=== PATIENT | female | born 1985 | race Caucasian/White ===

== ENCOUNTER 2019-03-09 18:11 | Emergency (ER) | payer SELFPAY ==
--- NOTE | 2019-03-09 21:25 | ULT ---
US Pelvic Transvag W Doppler HISTORY: Low back pain COMPARISON: None TECHNIQUE: Multiple grayscale and color Doppler images were obtained in a transabdominal and transvag inal pelvic ultrasound. Spectral analysis of the Doppler waveforms of the ovaries were performed. FINDINGS: Hypoechoic focus indicative of gestational sac is present at the uterine endometrium. Internal yolk s ac is visualized. Definitive pole is difficult to discern and there is no cardiac activity. On the basis sonographic imaging this corresponds to 5 week 4 day gestation. There is a sma ll volume subchorionic hemorrhage demonstrated. Presumed physiologic left ovarian cyst measures slightly greater than 2 cm. There is mild free pelvic fluid. IMPRESSION: Evidence of gestational sac with internal yolk sac. pole is not confirmed due to sm all size and early gestational sac, corresponding to 5 week 4 day gestation. Therefore, recommend correlation with follow-up beta hCG values as well as short-term imaging follow-up for continued asse ssment. Small volume subchorionic hemorrhage. This may be reassessed at time of short-term imaging follow-up. Transcribed Date/Time: 03/09/2019 9:28 PM
== END 2019-03-09 22:02 | disposition home or self-care (01) ==
LOC: ERS 18:11
DX: M54.5 Low back pain (principal); F17.210 Nicotine dependence, cigarettes, uncomplicated
CPT/HCPCS: 76856

== ENCOUNTER 2019-04-16 08:43 | Emergency (ER) | payer MEDICAID ==
[2019-04-16 09:20] LABS: #Lymphocytes 1.2 thou/uL (1.20-3.40); #Monocytes 0.8 thou/uL (0.11-0.59); #Neutrophils 6.5 thou/uL (1.40-6.50); %Basophils 0.5 % (0.0-1.0); %Eosinophils 0.5 % (0.0-10.0); %Lymphocytes 14.6 % (21.0-51.0); %Monocytes 8.8 % (0.0-10.0); %Neutrophils 75.7 % (42.0-75.0); Hemoglobin 12.9 g/dL (12.0-16.0); Mean Corpuscular HGB CONC 33.3 g/dL (32.0-36.0); Mean Corpuscular Hemoglobin 30.7 pg (27.0-31.0); Mean Platelet Volume 9.1 fL (7.4-10.4); Platelet Count 146 thou/uL (130-400); RBC Distribution Width 11.2 % (11.5-14.5); Red Blood Cell (RBC) Count 4.22 mill/uL (4.20-5.40); White Blood Cell (WBC) Count 8.5 thou/uL (4.8-10.8)
[2019-04-16 10:36] LABS: Bilirubin Negative (Negative); Blood, Urine 3+ (Negative); Clarity Extra Turbid (Clear); Glucose, Urine (Dipstick) Normal (Negative); Leukocyte 500 Leu/uL (Negative); Nitrite Negative (Negative); Protein, Urine (Dipstick) 100 mg/dL (Neg-Trace); RBC/HPF Greater than 50 HPF (0-3); Transitional Epithelial 0-3 HPF (None Seen); WBC/HPF Greater than 50 HPF (0-3)
[2019-04-16 10:39] LABS: Bacteria/HPF 3+ HPF (None Seen)
--- NOTE | 2019-04-16 11:04 | ULT ---
Exam: ultrasound less than 14 weeks: HISTORY: Bleeding in early FINDINGS: Viable intrauterine fetus with a crown-rump length of 3.5 cm equaling 10 weeks 3 days. Subchorionic h emorrhage is noted. Right ovary is not seen. Small less than 1.5 cm left ovarian cyst. No abnormal fluid collection. heart rate 180 bpm IMPRESSION: Early viable intrauterine fetus at 10 weeks 3 days. EDC 11/09/2019 Small subchorionic hemorrhage.
== END 2019-04-16 12:03 | disposition home or self-care (01) ==
LOC: ERS 08:43
DX: O20.8 Other hemorrhage in early pregnancy (principal); O99.331 Smoking (tobacco) complicating pregnancy, first trimester; F17.200 Nicotine dependence, unspecified, uncomplicated; Z3A.10 10 weeks gestation of pregnancy
CPT/HCPCS: 36415; 76856; 81003; 81015; 84702; 85025; 86900; 86901; 87086; 93976

== ENCOUNTER 2019-05-04 07:46 | Observation (INO) | payer OTHER ==
[2019-05-04 08:46] LABS: #Monocytes 0.4 thou/uL (0.11-0.59); #Neutrophils 13.5 thou/uL (1.40-6.50); %Basophils 0.1 % (0.0-1.0); %Eosinophils 0.2 % (0.0-10.0); %Lymphocytes 6.8 % (21.0-51.0); %Monocytes 2.5 % (0.0-10.0); %Neutrophils 90.4 % (42.0-75.0); Hemoglobin 9.9 g/dL (12.0-16.0); Mean Corpuscular HGB CONC 33.1 g/dL (32.0-36.0); Mean Corpuscular Hemoglobin 30.3 pg (27.0-31.0); Mean Corpuscular Volume 91.4 fL (78.0-98.0); Mean Platelet Volume 9.3 fL (7.4-10.4); Platelet Count 216 thou/uL (130-400); Red Blood Cell (RBC) Count 3.26 mill/uL (4.20-5.40); White Blood Cell (WBC) Count 14.9 thou/uL (4.8-10.8)
[2019-05-04 08:58] LABS: ALT (SGPT) Less than 7 U/L (8-55); AST (SGOT) 10 U/L (5-34); Albumin 3.5 g/dL (3.5-5.0); Alkaline Phosphatase 63 U/L (40-110); Anion Gap 13 mmol/L (10-20); BUN (Urea Nitrogen) 10 mg/dL (7.0-18.7); Bilirubin, Total 0.4 mg/dL (0.2-1.2); Calc. Creatinine Clearance 0 mL/min (70-130); Calcium 8.7 mg/dL (7.8-10.44); Carbon Dioxide 22 mmol/L (22-29); Chloride 104 mmol/L (98-107); Estimated GFR-MDRD 86; Glucose 118 mg/dL (70-105); Potassium 4.1 mmol/L (3.5-5.1); Protein, Total 6.5 g/dL (6.0-8.3); Sodium 135 mmol/L (136-145)
--- NOTE | 2019-05-04 09:35 | ULT ---
ULTRASOUND PELVIS: 05/04/2019 HISTORY: A 33-year-old female with ongoing vaginal bleeding after miscarriage. COMPARISON: 04/16/2019 TECHNIQUE: Transabdominal transducer used to evaluate intrapelvic contents. The patient declined transvaginal exam. FINDINGS: Uterus measures 10.5 x 6.5 x 6.5 cm. The previously demonstrated gestational sac with pole is no longer present. Instead, the endome trial cavity is filled to an AP dimension of at least 2 cm (20 mm) with material of intermediate echo genicity, identical to that of adjacent myometrium. This is lined by a thin rim of fluid. This is con sistent with blood clot/hematoma. No hyperechoic components are visualized to indicate definite retai roselia products of conception but retained products of conception are not completely ruled out. No free fluid in the cul-de-sac. The left ovary is within normal limits in size and contains a 1.5 cm cystic central structure. Blood flow demonstrated in the left ovary by Doppler. Right ovary not visualized. IMPRESSION: 1. Status post spontaneous . 2. Large thrombus/blood clot fills and expands the endometrial cavity. POS: [facility]
[2019-05-04 10:25] LABS: Bilirubin Negative (Negative); Blood, Urine 3+ (Negative); Clarity Clear (Clear); Glucose, Urine (Dipstick) Normal (Negative); Leukocyte 75 Leu/uL (Negative); Nitrite Negative (Negative); Protein, Urine (Dipstick) 20 mg/dL (Neg-Trace); RBC/HPF Greater than 50 HPF (0-3); Squamous Epithelial 0-3 HPF (0-3); Urobilinogen Normal mg/dL (Less than 2); WBC/HPF 21-50 HPF (0-3)
[2019-05-04 10:27] LABS: Bacteria/HPF 1+ HPF (None Seen)
[2019-05-04] MEDS ORDERED: PROPOFOL 200 MG/20 ML VIAL ONE (10:27)
[2019-05-04] MEDS ORDERED: Lidocaine 1% PF 5 ML VIAL ONE (10:27)
[2019-05-04] MEDS ORDERED: ePHEDrine/0.9% NaCl/PF SYRINGE 50 mg/10 ml ONE (10:27)
[2019-05-04] MEDS ORDERED: PHENYLEPHRINE-NS 100 MCG/ML 10 ML SYRINGE ONE (10:27)
[2019-05-04] MEDS ORDERED: Misoprostol 200 MCG TAB VAG PRN (13:12)
[2019-05-04] MEDS ORDERED: cefTRIAXone\\ROCEPHIN 1 GM VIAL ONE (15:32)
[2019-05-04 15:51] LABS: #Lymphocytes 2.5 thou/uL (1.20-3.40); #Monocytes 0.8 thou/uL (0.11-0.59); #Neutrophils 6.8 thou/uL (1.40-6.50); %Basophils 0.3 % (0.0-1.0); %Eosinophils 0.5 % (0.0-10.0); %Lymphocytes 24.7 % (21.0-51.0); %Monocytes 7.8 % (0.0-10.0); %Neutrophils 66.8 % (42.0-75.0); Hemoglobin 7.4 g/dL (12.0-16.0); Mean Corpuscular HGB CONC 33.4 g/dL (32.0-36.0); Mean Corpuscular Hemoglobin 30.5 pg (27.0-31.0); Mean Corpuscular Volume 91.2 fL (78.0-98.0); Mean Platelet Volume 9.2 fL (7.4-10.4); Platelet Count 174 thou/uL (130-400); Red Blood Cell (RBC) Count 2.44 mill/uL (4.20-5.40); White Blood Cell (WBC) Count 10.2 thou/uL (4.8-10.8)
[2019-05-04] MEDS ORDERED: Misoprostol 200 MCG TAB VAG SCH (18:30)
--- NOTE | 2019-05-04 18:36 | PRG ---
DATE OF SERVICE: 05/04/2019 TIME: 1814. THERAPY ASSISTANT INFORMAL CONSULT I am with Dr. العراقي now and we are briefly reviewing a patient of his who first presented this morning after an ultrasound was performed at 0809, confirming absence of a gestational sac in utero with a working diagnosis of possible incomplete . Per Dr. العراقي, he has attempted to get the patient to the operating room for a D and C, but due to the OR schedule, and likely anesthesia staffing availability, the OB D and C has not yet been done. The patient received Cytotec earlier this morning, but I have recommended another 800 mcg per vagina x1 as the OR is still pending. As Dr. العراقي will be temporarily unavailable from 1830 until 2200, I have agreed to be available for D and C in the OR once the OR is available. The patient is currently receiving her first unit of packed red blood cells as her hematocrit value has gone from 29.8 at 0823 this morning to last value of 22.2 from 1535 this afternoon. She is also typed and crossed for an additional unit, 2 units total. Her Rh type is positive. Anesthesia is aware, OR team is aware, but we are awaiting availability. As it has been about 10 hours since first presentation, this is just a quick note to update the clinical status, as the primary care team is still awaiting OR availability. As an interim and as an attempt to intervene prior to D and C availability, the 800 mcg Cytotec may help expel any retained products. Job ID: [id number]
[2019-05-04] MEDS ORDERED: Azithromycin 500 MG VIAL ONE (18:53)
[2019-05-04] MEDS ORDERED: Fentanyl 100 MCG/2 ML VIAL ONE (19:11)
[2019-05-04] MEDS ORDERED: Midazolam HCl 2 mg/2 ml Vial ONE (19:11)
--- NOTE | 2019-05-04 19:30 | HP ---
TIME OF EVALUATION: 1854 until 1904. CHIEF COMPLAINT: Vaginal bleeding in the first trimester with an incomplete . HISTORY OF PRESENT ILLNESS: This is a patient of Dr. العراقي who has asked me to intervene for D and C this evening as he is temporarily unavailable. The patient first presented at 0800 this morning and was awaiting OR availability and is now ready for the OR. She is also currently receiving her second unit of packed red blood cells. In brief, this patient has a full hand written H and P in the physical chart, so this is simply ancillary for record. I have seen and evaluated the patient. INTERVENTIONS: Pending, OB D and C. Zithromax 500 mg IV x1. I have called ultrasound to see if they are available for ultrasound guidance, but I could not find someone to answer the phone at the department at this time. ASSESSMENT: 1. This is a first trimester incomplete status post Cytotec who is now ready for the OB D and C. 2. Status post 2 units RBCs with a second unit in process now. PLAN: 1. D and C now. 2. Zithromax as preop antibiotic. 3. Rh positive. 4. The patient was safe for overnight observation per Dr. العراقي and he will evaluate her later on this evening to tomorrow morning for possible discharge. Job ID: [id number]
--- NOTE | 2019-05-04 20:43 | OP ---
DATE OF PROCEDURE: 05/04/2019 TIME OF INTERVENTION: Roughly 1930. LOCATION: OR bed D. PREOPERATIVE DIAGNOSIS: This is a patient with suspected 12- to 13-week miscarriage with retained products of conception and active bleeding, who has required 2 units packed red blood cells. POSTOPERATIVE DIAGNOSES: 1. This is a patient with suspected 12- to 13-week miscarriage with retained products of conception and active bleeding, who has required 2 units packed red blood cells. 2. Status post suction D and C under ultrasound guidance (by Department of technician plant and maintenance...informal scan). PROCEDURE PERFORMED: OB suction D and C (#8 curved and #10 curved plastic curette) done under ultrasound guidance (transabdominal). GOLF STARTER AND RANGER: Olga Hahn (M #3). ANESTHESIA: General. ANTIBIOTICS: Zithromax 500 mg IV. OTHER FLUIDS GIVEN: Includes LR at about 500 mL and a second unit of blood was completed which was begun in the emergency department. ESTIMATED BLOOD LOSS: About 500 mL. FINDINGS: 1. There is an echogenic material in the uterine cavity seen on ultrasound at the initiation of the case. 2. The entire procedure was done under transabdominal ultrasound and no evidence of uterine perforation occurred. 3. At the completion of the procedure, there was an endometrial stripe noted that did not suspect any further retained products. 4. No cervical lesions noted. MEDICATIONS GIVEN: At end of procedure includes Cytotec (four tablets) placed in the vagina and the posterior fornix. COMPLICATIONS: None. COUNTS: Correct. PATHOLOGY: Tissue via suction catheter and tissue that was pulled from the cervix that was adherent to the suction catheter also sent under formalin (suspected placental fragments). DESCRIPTION OF PROCEDURE: After proper informed consent was explained to the patient, she was placed under general endotracheal anesthesia and her legs were positioned in Morgan stirrups and all pressure points were adequately padded. Deep hyperflexion and external rotation were avoided in the positioning process. The patient's vulva and vagina were prepped and draped in the usual sterile fashion. An in-and-out catheterization of the bladder revealed about 100 mL of clear urine. A Graves bivalve speculum was placed into the vagina for visualization of the cervix and a single-tooth tenaculum was placed on the anterior lip for uterine retraction. Dilation was not required as the cervix was patent. The uterine sound was about 9-10 cm. We began with an 8 mm curved plastic curette using a vacuum pressure of 30 to 40 mmHg. After about 2 minutes of suction noting that there was a significant amount of retained products, we switched to a #10 curved plastic curette under the same mmHg. Continuous suction was performed and sharp curettage was not performed. At the completion of the procedure, there was an endometrial stripe noted on ultrasound. All instruments were removed from the patient's vault and vagina and all counts were correct. MEDS: Four tablets of 200 mcg of Cytotec each were placed in the posterior fornix for uterine contraction. DISPOSITION: The patient seemed to tolerate the procedure well based on her vital signs and will be watched overnight per Dr. العراقي who is her attending/admitting physician. Job ID: [id number] MTDD
[2019-05-04] MEDS: Sodium Chloride 0.9% 1,000 ML IV SCH (22:25)
--- NOTE | 2019-05-05 00:50 | HP ---
HISTORY OF PRESENT ILLNESS: This is a 33-year-old white female, G5, P2, A3, who spontaneously aborted her most recent 2 days prior to admission. She had an episode of heavy bleeding at home, and an ultrasound which had previously shown intrauterine gestation, on followup ultrasound on the day prior to admission showed only clot and debris. She was given misoprostol to prevent bleeding; however, on the morning of admission, when she took her first dose, she had significant pain and bleeding and fainted in the bathroom at home. She was brought to the emergency room by her mother. PAST MEDICAL HISTORY: No chronic disease. MEDICATIONS: Takes no medication on a regular basis. PAST SURGICAL HISTORY: No prior surgeries. SOCIAL HISTORY: Denies tobacco, alcohol, or drugs. PHYSICAL EXAMINATION: VITAL SIGNS: Pulse is in the 80s. Blood pressure is in the 70s to 80s over 50s. HEENT: She has a small contusion above the left eyebrow from her fall. ABDOMEN: Soft with no guarding or rebound, but tenderness in the suprapubic region. : Sterile speculum exam by the ER physician showed an open cervical os. EXTREMITIES: Warm and dry. LABORATORY DATA: Initial CBC showed an H and H of 9.9/29.8. Followup CBC 9 hours later, showed a hemoglobin of 7.4 with hematocrit of 22.2. Platelets went from 216 to 174. Electrolytes are normal. Urine is unremarkable. Ultrasound shows a clot and debris in the endometrial canal with no pole consistent with incomplete AB; however, no products of conception are definitively identified. ASSESSMENT AND PLAN: Incomplete with hemorrhage. We will admit to [facility]. Prepare for D and C, transfusion support as needed. Job ID: [id number]
--- NOTE | 2019-05-05 01:27 | PRG ---
DATE OF SERVICE: 05/04/2019 SUBJECTIVE: The patient complains of cramps and being hungry. OBJECTIVE: VITAL SIGNS: Her pulse is 90. Her blood pressure is 90/55. LABORATORY DATA: Hematocrit 23, down from 28 this morning. PLAN: I again spoke with Anesthesia, Dr. Naidu and informed him of the patient's persistent bleeding, drop in hematocrit, and hypotension over the last 6 hours since I was notified of the admission and he estimates 1-1/2 hours before surgery can be performed due to ongoing surgery cases. We will proceed as planned with transfusion of 2 units of packed red cells and we will perform D and C as soon as anesthesia is available for the case. Job ID: [id number] MTDD
[2019-05-05] MEDS: Sodium Chloride 0.9% 1,000 ML IV SCH (02:16)
[2019-05-05 05:46] LABS: #Eosinphils 0.2 thou/uL (0.0-0.7); #Lymphocytes 3.4 thou/uL (1.20-3.40); #Monocytes 0.8 thou/uL (0.11-0.59); #Neutrophils 5.9 thou/uL (1.40-6.50); %Basophils 0.1 % (0.0-1.0); %Eosinophils 1.6 % (0.0-10.0); %Monocytes 8.1 % (0.0-10.0); %Neutrophils 57.2 % (42.0-75.0); Mean Corpuscular HGB CONC 34.7 g/dL (32.0-36.0); Mean Corpuscular Hemoglobin 31.4 pg (27.0-31.0); Mean Corpuscular Volume 90.6 fL (78.0-98.0); Mean Platelet Volume 9.5 fL (7.4-10.4); Platelet Count 143 thou/uL (130-400); RBC Distribution Width 12.2 % (11.5-14.5); Red Blood Cell (RBC) Count 2.54 mill/uL (4.20-5.40); White Blood Cell (WBC) Count 10.4 thou/uL (4.8-10.8)
[2019-05-05 07:44] VITALS: BP 99/53; TEMP 97.5
[2019-05-05] MEDS ORDERED: FLU VACC QS2019-20(6MOS UP)/PF 60 MCG/0.5 ML SYRINGE IM ONE (09:00)
--- NOTE | 2019-05-06 04:28 | DIS ---
DATE OF ADMISSION: 05/04/2019 DATE OF DISCHARGE: 05/05/2019 PRINCIPAL DIAGNOSIS: Incomplete with hemorrhage. PROCEDURE: Suction dilation and curettage. BRIEF HISTORY: A 33-year-old white female G5, P2 at approximately 12 weeks estimated gestational age, had a spontaneous AB 2 days prior to admission at home. One day prior to admission, she had an ultrasound that showed only blood debris and a possible hematoma in the endometrial cavity. On the day of admission, she took her prescribed misoprostol and had episode of heavy bleeding and pain and presented to the ER. PHYSICAL EXAMINATION: VITAL SIGNS: On admission showed blood pressure in the 80s to 90s over 50s. His pulse was in the 90s. ABDOMEN: Soft with mild tenderness in the suprapubic region and open cervix on sterile speculum exam. HOSPITAL COURSE: Ms. Restrepo was admitted from the ER to preop after an extended ER stay due to lack of OR time and/or anesthesia availability. In the interim, between admission and her D and C, she was transfused 2 units of packed red cells for continued bleeding and drop in her hematocrit from 30 to 22. She was eventually taken for suction D and C, which she underwent without complication. She was observed overnight. Overnight, postoperatively, she did well. Bleeding was scant. She had no pain on the morning of 05/05. She was discharged in good condition on 05/05/2019. DISCHARGE INSTRUCTIONS: ACTIVITIES: As tolerated. FOLLOWUP: In 1 to 2 weeks. MEDICATIONS: Iron daily. She has ibuprofen and Lortab previously given. Job ID: [id number]
== END 2019-05-05 07:00 | disposition home or self-care (01) ==
LOC: ERS 07:46 → SDC/OP 20:14 → 3SE 21:48
PROVIDERS: ADMIT Obstetrics & Gynecology; ATTEND Obstetrics & Gynecology
PROC: 10D17Z9 Manual Extraction of Products of Conception, Retained, Via Natural or Artificial Opening (ICD-10-PCS; principal; 2019-05-05)
DX: O03.1 Delayed or excessive hemorrhage following incomplete spontaneous abortion (principal); Z3A.12 12 weeks gestation of pregnancy
CPT/HCPCS: 36415; 36430; 76856; 80053; 81003; 81015; 85025; 86850; 86900; 86901; 88305; 93005; 93976; 96361; 96365; G0378; J0456; J0696; J2001; J2250; J2704; J3010; P9016

== ENCOUNTER 2019-10-27 14:58 | Emergency (ER) | payer OTHER ==
[2019-10-27] MEDS ORDERED: Ondansetron PF 4 MG/2 ML Vial ONE (15:12)
[2019-10-27 15:36] LABS: #Basophils 0.1 thou/uL (0.0-0.2); #Eosinphils 0.3 thou/uL (0.0-0.7); #Lymphocytes 2.4 thou/uL (1.20-3.40); #Monocytes 0.7 thou/uL (0.11-0.59); #Neutrophils 7.7 thou/uL (1.40-6.50); %Basophils 0.7 % (0.0-1.0); %Eosinophils 2.5 % (0.0-10.0); %Lymphocytes 21.3 % (21.0-51.0); %Monocytes 6.4 % (0.0-10.0); %Neutrophils 69.1 % (42.0-75.0); Hemoglobin 12.5 g/dL (12.0-16.0); Mean Corpuscular HGB CONC 31.9 g/dL (32.0-36.0); Mean Corpuscular Hemoglobin 27.3 pg (27.0-31.0); Mean Corpuscular Volume 85.7 fL (78.0-98.0); Mean Platelet Volume 10.2 fL (7.4-10.4); Platelet Count 148 thou/uL (130-400); RBC Distribution Width 15.4 % (11.5-14.5); Red Blood Cell (RBC) Count 4.57 mill/uL (4.20-5.40); White Blood Cell (WBC) Count 11.1 thou/uL (4.8-10.8)
[2019-10-27 15:53] LABS: ALT (SGPT) Less than 7 U/L (8-55); AST (SGOT) 10 U/L (5-34); Albumin 3.7 g/dL (3.5-5.0); Alkaline Phosphatase 60 U/L (40-110); Anion Gap 12 mmol/L (10-20); BUN (Urea Nitrogen) 8 mg/dL (7.0-18.7); Bilirubin, Total 0.4 mg/dL (0.2-1.2); Calc. Creatinine Clearance 0 mL/min (70-130); Calcium 8.6 mg/dL (7.8-10.44); Carbon Dioxide 21 mmol/L (22-29); Chloride 104 mmol/L (98-107); Estimated GFR-MDRD Greater than 90; Globulin 3.1 g/dL (2.4-3.5); Glucose 86 mg/dL (70-105); Lipase 30 U/L (8-78); Potassium 3.9 mmol/L (3.5-5.1); Protein, Total 6.8 g/dL (6.0-8.3); Sodium 133 mmol/L (136-145)
[2019-10-27 16:04] LABS: Bilirubin Negative (Negative); Blood, Urine Negative (Negative); Clarity Clear (Clear); Glucose, Urine (Dipstick) Normal (Negative); Leukocyte Negative Leu/uL (Negative); Nitrite Negative (Negative); Protein, Urine (Dipstick) Negative (Neg-Trace); Urobilinogen Normal mg/dL (Less than 2)
--- NOTE | 2019-10-27 16:33 | ULT ---
Obstetric sonogram limited twin HISTORY: Nausea vomiting. Pelvic pain. . FINDINGS: Diamniotic, dichorionic gestation within the uterus. 2 poles and yolk sacs. There is an anterior and a posterior placenta. Small subchorionic fluid collection, 1.6 cm, along the anterior margin. pole measurements correlate with 10 weeks 5 days and 10 weeks 6 days gestational age. Heart motion was calculated at 175 and 168 bpm. IMPRESSION : Twin intrauterine gestation. Estimated gestational ages 10 weeks 5 days and 10 weeks 6 days. No evide nce of complication. Incidental note of very small subchorionic hemorrhage.
== END 2019-10-27 17:20 | disposition short-term general hospital (02) ==
LOC: ERS 14:58
DX: O21.9 Vomiting of pregnancy, unspecified (principal); O30.041 Twin pregnancy, dichorionic/diamniotic, first trimester; O99.331 Smoking (tobacco) complicating pregnancy, first trimester; F17.210 Nicotine dependence, cigarettes, uncomplicated; Z3A.10 10 weeks gestation of pregnancy
CPT/HCPCS: 36415; 76815; 80053; 81003; 83690; 84702; 85025; 96361; 96374; J2405

== ENCOUNTER 2020-03-13 14:04 | Day surgery (SDC) | payer OTHER ==
[2020-03-13 14:42] VITALS: BMI 34.1
[2020-03-13] MEDS ORDERED: hydrALAZINE 20 MG/ML VIAL SLOW IVP PRN (15:39)
[2020-03-13 16:31] LABS: Bacteria/HPF None Seen HPF (None Seen); Bilirubin Negative (Negative); Blood, Urine Negative (Negative); Clarity Clear (Clear); Glucose, Urine (Dipstick) Normal (Negative); Ketone, Urine Negative (Negative); Leukocyte Negative Leu/uL (Negative); Nitrite Negative (Negative); Protein, Urine (Dipstick) Negative (Neg-Trace); RBC/HPF None Seen HPF (0-3); Specific Gravity, Urine 1.015 (1.002-1.036); Squamous Epithelial 0-3 HPF (0-3); WBC/HPF 0-3 HPF (0-3); pH, Urine 5.5 (5.0-9.0)
--- NOTE | 2020-03-13 17:01 | ULT ---
US Biophysical Profile: 03/13/2020 3:40 PM CLINICAL HISTORY: Twin intrauterine . COMPARISON: None. FINDINGS: Fetus A: heart rate: 119 bpm. PIERRE: 5.1 cm Biophysical profile: 8 of 8 Fetus B: heart rate: 132 bpm. PIERRE: 3.4 cm Biophysical profile: 8 of 8 IMPRESSION: 1. Normal biophysical profile 2. Oligohydramnios
[2020-03-13] MEDS ORDERED: FLU VACC QS2020-21(6MOS UP)/PF 60 MCG/0.5 ML SYRINGE IM ONE (19:15)
--- NOTE | 2020-03-14 06:38 | PRG ---
DATE OF SERVICE: 03/13/2020 CHIEF COMPLAINT: Abdominal pain. HISTORY OF PRESENT ILLNESS: The patient is a 34-year-old G6, P4 female with an intrauterine at 30 weeks and 3 days of a di/di twin gestation, presenting to Labor and Delivery with abdominal menstrual cramps that she said persisted for about 30 to 45 minutes this morning. She also had this similar symptom on Friday that lasted about 30 minutes. The patient reports at the time of our evaluation that this pain has resolved and has not had it since. She denies regular intermittent pains or contractions. She denies sharp stabbing pains associated with movement. She reports having had intercourse yesterday. She also reports a discharge that she describes as thin and mucousy and clear. The patient denies fever, cough, headache, chest pain, shortness of breath, nausea, vomiting, diarrhea, or constipation. She does report hip pain with this . She denies any new rashes. She denies vaginal bleeding or watery discharge. She denies urinary urgency or frequency. PAST MEDICAL HISTORY: Anemia. PAST SURGICAL HISTORY: She has had eye surgery. SOCIAL HISTORY: Reports tobacco use, about 3 to 5 cigarettes a day. ALLERGIES: NO KNOWN DRUG ALLERGIES. MEDICATIONS: 1. vitamins. 2. Iron. OB LABS: Unavailable at the time of dictation. REVIEW OF SYSTEMS: Per HPI. PHYSICAL EXAMINATION: VITAL SIGNS: Blood pressure is 103/63, heart rate of 81, saturating 98% on room air, temperature 98.2, and respiratory rate of 20. GENERAL: She appears to be in no acute distress. She is alert, oriented, cooperative, and pleasant to interact with. HEENT: Head is normocephalic and atraumatic. LUNGS: Clear to auscultation bilaterally. HEART: Has a regular rate and rhythm. ABDOMEN: Gravid, soft, nontender. EXTREMITIES: Nontender, nonedematous. PELVIS: Vulva is without masses, lesions, or erythema. Vagina is moist. She has a moderate amount of discharge. She has thin cervical mucus present. A VP3 was collected. On digital exam, cervix is closed and thick and feels unlabored. heart tracing was difficult with a twin gestation. We did get tracing of one of the babies with a baseline of 140s with moderate long-term variability, positive 15 x 15 accelerations. Baby B only in short spurts were we able to see. BPP shows 8 for both baby A and baby B. Urinalysis and VP3 have both been collected, and we are awaiting final results. ASSESSMENT AND PLAN: The patient is a 34-year-old female, G6, P4 with an intrauterine of a di/di twin gestation at 30 weeks and 3 days, coming in complaining of an isolated extended abdominal cramp that has since spontaneously resolved. The patient has no evidence of labor or rupture of membranes. The patient has a VP3 and urinalysis pending. The patient is being discharged to home. She has an appointment tomorrow with [facility]. The patient will be calling in a couple of hours for her VP3 and urinalysis results. Job ID: [id number]
== END 2020-03-13 16:38 | disposition home or self-care (01) ==
LOC: L&D/OP 14:04
PROVIDERS: ATTEND Family Medicine
DX: O99.891 Other specified diseases and conditions complicating pregnancy (principal); R10.9 Unspecified abdominal pain; O30.043 Twin pregnancy, dichorionic/diamniotic, third trimester; O41.03X0 Oligohydramnios, third trimester, not applicable or unspecified; O99.013 Anemia complicating pregnancy, third trimester; D64.9 Anemia, unspecified; O99.333 Smoking (tobacco) complicating pregnancy, third trimester; F17.210 Nicotine dependence, cigarettes, uncomplicated; Z3A.30 30 weeks gestation of pregnancy
CPT/HCPCS: 76819; 81001; 87480; 87510; 87660

== ENCOUNTER 2020-03-15 15:58 | Inpatient (IN) | payer OTHER ==
[~2020-03-15 15:58] MED LIST: EPHEDRINE 25 MG/5 ML SYRINGE ONE; Glycopyrrolate 0.2 MG/ML 5 ML SYRINGE ONE; Lidocaine 1% PF 5 ML VIAL ONE; Oxytocin 10 UNITS/ML VIAL ONE; PROPOFOL 200 MG/20 ML VIAL ONE; Rocuronium Bromide 10 MG/ML (10ML VIAL) ONE; Succinylcholine Chloride 20 MG/ML 10 ml SYRINGE FS ONE
[2020-03-15] MEDS ORDERED: Betamet Acet/Betamet Na Ph 30 MG/5 ML VIAL ONE (16:29)
[2020-03-15 16:46] LABS: #Basophils 0.1 thou/uL (0.0-0.2); #Eosinphils 0.2 thou/uL (0.0-0.7); #Monocytes 1.1 thou/uL (0.11-0.59); #Neutrophils 11.2 thou/uL (1.40-6.50); %Basophils 0.4 % (0.0-1.0); %Eosinophils 1.5 % (0.0-10.0); %Lymphocytes 13.8 % (21.0-51.0); %Monocytes 7.6 % (0.0-10.0); %Neutrophils 76.8 % (42.0-75.0); Hemoglobin 8.8 g/dL (12.0-16.0); Mean Corpuscular HGB CONC 31.9 g/dL (32.0-36.0); Mean Corpuscular Hemoglobin 27.2 pg (27.0-31.0); Mean Corpuscular Volume 85.5 fL (78.0-98.0); Mean Platelet Volume 8.9 fL (7.4-10.4); Platelet Count 171 thou/uL (130-400); RBC Distribution Width 18.5 % (11.5-14.5); Red Blood Cell (RBC) Count 3.22 mill/uL (4.20-5.40); White Blood Cell (WBC) Count 14.6 thou/uL (4.8-10.8)
[2020-03-15 16:53] LABS: PTT 26.4 sec (22.9-36.1); Prothrombin Time 13.7 sec (12.0-14.7)
[2020-03-15] MEDS ORDERED: Ondansetron PF 4 MG/2 ML Vial IVP PRN ×4 (16:56→22:10)
[2020-03-15] MEDS ORDERED: hydrALAZINE 20 MG/ML VIAL SLOW IVP PRN ×2 (16:56→22:10)
[2020-03-15] MEDS ORDERED: Lactated Ringer's 1,000 ML IV SCH (17:00)
[2020-03-15 18:01] LABS: HBSAg Index 0.18 S/CO (0-0.99); Hep B Surf Ag Non-Reactive S/CO (NonReactive)
[2020-03-15 18:03] LABS: Syphilis Antibody Nonreactive (Nonreactive); Syphilis Antibody Index 0.04 S/CO (<1.00 Non-Reactive)
[2020-03-15] MEDS ORDERED: Bicitra 30 ML UDCUP ONE (18:28)
[2020-03-15] MEDS ORDERED: Bicitra 30 ML UDCUP PO SCH (18:30)
[2020-03-15] MEDS ORDERED: Azithromycin 500 MG in Sodium Chloride 0.9% 250 ML 250 ML IVPB SCH (18:30)
[2020-03-15] MEDS ORDERED: CEFAZOLIN 2 GM in Premix Bag 1 BAG IVPB SCH ×2 (18:30→23:59)
[2020-03-15] MEDS ORDERED: Azithromycin 500 MG VIAL ONE (18:32)
[2020-03-15] MEDS ORDERED: Fentanyl 250 MCG/5 ML VIAL ONE (18:53)
[2020-03-15] MEDS ORDERED: Dexamethasone 4 mg/ml Vial ONE (19:00)
[2020-03-15] MEDS ORDERED: Ketorolac Tromethamine 30 MG/ML VIAL ONE (19:00)
[2020-03-15] MEDS ORDERED: Ondansetron PF 4 MG/2 ML Vial ONE (19:00)
[2020-03-15 19:07] LABS: Actual Bicarbonate (HCO3v) 21 mEq/L (22-28); Base Excess -1.7 mEq/L (-2.0 to +3.0); pH (Cord, venous) 7.46 (7.32-7.43)
[2020-03-15 19:10] LABS: Actual Bicarbonate (HCO3v) 22 mEq/L (22-28); pH (Cord, venous) 7.46 (7.32-7.43)
[2020-03-15 19:12] LABS: Actual Bicarbonate (HCO3a) 22.6 mEq/L (22-28); Base Excess (BEa) -2.3 mEq/L (-2.0 to +3.0)
[2020-03-15] MEDS ORDERED: Oxytocin 10 UNITS/ML VIAL ONE (19:25)
[2020-03-15] MEDS ORDERED: diphenhydrAMINE 50 MG/ML VIAL IVP PRN ×2 (19:40→19:41)
[2020-03-15] MEDS ORDERED: Meperidine HCl/PF 25 MG/ML VIAL SLOW IVP PRN (19:40)
[2020-03-15] MEDS ORDERED: Promethazine HCl 25 MG/ML VIAL IM PRN ×3 (19:40→22:10)
[2020-03-15] MEDS ORDERED: Naloxone HCl 0.4 mg/ml Vial IV PRN ×2 (19:40→19:41)
[2020-03-15] MEDS ORDERED: Ondansetron HCl/PF 4 MG/2 ML Vial IVP PRN (19:40)
[2020-03-15] MEDS ORDERED: diphenhydrAMINE 25 MG CAP PO PRN ×3 (19:40→22:10)
[2020-03-15] MEDS ORDERED: HYDROmorphone 2 MG/ML VIAL SLOW IVP PRN (19:40)
[2020-03-15] MEDS ORDERED: L&D-Morphine 4 MG/ML VIAL SLOW IVP PRN (19:40)
[2020-03-15] MEDS ORDERED: Zolpidem Tartrate 5 MG TAB PO PRN ×2 (19:40→19:41)
[2020-03-15] MEDS ORDERED: diphenhydrAMINE 50 MG/ML VIAL IM PRN ×2 (19:40→19:41)
[2020-03-15] MEDS ORDERED: fentaNYL Citrate/PF 2,000 MCG in Sodium Chloride 0.9% 60 ML IV PRN (19:41)
[2020-03-15 19:42] LABS: SARS-CoV-2 NAA Rapid Test Not Detected (NotDetected)
--- NOTE | 2020-03-15 19:42 | ULT ---
OB ULTRASOUND: 03/15/20 HISTORY: Twin with vaginal bleeding. Evaluate for placental abruption. TECHNIQUE: Multiplanar thompson scale and color Doppler images were obtained in a transabdominal ultrasound. FINDINGS: There is a twin intrauterine . For the purposes of this examination, twin A is in breech pre sentation and its placenta cannot be seen and twin B is in breech presentation with an anterior place nta. There is cervical funneling/widening. PIERRE is 9.6 cm, which is normal. FETUS A: Estimated weight is 1430 grams. Average age of this fetus is 30 weeks, 0 days. A heart ra te is 145 beats per minute. The following measurements were taken and dates based off these measureme nts are as follows: BPD 7.35 cm 30 weeks, 5 days HC 27.42 cm 30 weeks, 0 days AC 25.16 cm 29 weeks, 3 days FL 5.67 cm 29 weeks, 5 days FETUS B: Estimated weight is 1520 grams. Average age of this fetus based off this examination is 30 week s, 2 days. B heart rate is 149 beats per minute. The following measurements were taken and date s based off these measurements are as follows: BPD 7.45 cm 29 weeks, 6 days HC 28.31 cm 31 weeks, 0 days AC 25.80 cm 30 weeks, 0 days FL 5.79 cm 30 weeks, 2 days IMPRESSION: 1. Twin intrauterine with viable twins. 2. There is cervical funneling. POS: [facility]
[2020-03-15] MEDS ORDERED: Communication Order-Pharmacy FS SCH ×2 (19:45)
[2020-03-15] MEDS ORDERED: Ketorolac Tromethamine 30 MG/ML VIAL IVP SCH (19:45)
[2020-03-15] MEDS: Lactated Ringer's 1,000 ML IV SCH ×2 (20:28→21:20)
[2020-03-15 20:36] VITALS: BMI 34.1
[2020-03-15] MEDS: metroNIDAZOLE 500 MG in Premix Bag 1 BAG IVPB SCH (21:11)
--- NOTE | 2020-03-15 22:05 | OP ---
DATE OF PROCEDURE: 03/15/2020 PRIMARY OB: Dr. Swapnil العراقي. This serves as documentation that I functioned as 1st assist to Dr. العراقي on an emergent primary for twins secondary to abruption. For complete details, please refer to Dr. العراقي's operative note. Job ID: [id number]
[2020-03-15] MEDS ORDERED: Bisacodyl 10 MG SUPP PR PRN (22:10)
[2020-03-15] MEDS ORDERED: Meperidine HCl/PF 25 MG/ML VIAL IM PRN (22:10)
[2020-03-15] MEDS ORDERED: Lanolin Ointment 7 GM TUBE TOP PRN (22:10)
[2020-03-15] MEDS ORDERED: HYDROcodone/Acetaminophen 5/325 mg Tablet PO PRN (22:10)
[2020-03-15] MEDS ORDERED: Simethicone Chewable 80 MG TAB PO PRN (22:10)
[2020-03-15] MEDS ORDERED: Docusate Calcium (SURFAK) 240 MG CAP PO SCH (22:45)
[2020-03-15] MEDS ORDERED: NS / Oxytocin 40 units/1000ml 1,000 ML IV SCH (22:45)
[2020-03-16] MEDS: Ketorolac Tromethamine 30 MG/ML VIAL IVP SCH ×4 (02:53→17:50)
[2020-03-16] MEDS: CEFAZOLIN 2 GM in Premix Bag 1 BAG IVPB SCH ×3 (02:55→17:49)
[2020-03-16] MEDS: metroNIDAZOLE 500 MG in Premix Bag 1 BAG IVPB SCH ×4 (05:37→21:48)
[2020-03-16 06:22] LABS: Hemoglobin 8.1 g/dL (12.0-16.0); Mean Corpuscular HGB CONC 32.4 g/dL (32.0-36.0); Mean Corpuscular Hemoglobin 28.2 pg (27.0-31.0); Mean Corpuscular Volume 87.1 fL (78.0-98.0); Platelet Count 155 thou/uL (130-400); RBC Distribution Width 17.8 % (11.5-14.5); Red Blood Cell (RBC) Count 2.88 mill/uL (4.20-5.40)
[2020-03-16] MEDS ORDERED: Adacel (T-DAP) 0.5 ML SYRINGE IM ONE (09:00)
[2020-03-16] MEDS ORDERED: FLU VACC QS2020-21(6MOS UP)/PF 60 MCG/0.5 ML SYRINGE IM ONE (09:00)
[2020-03-16] MEDS ORDERED: fentaNYL Citrate/PF 2,000 MCG in Sodium Chloride 0.9% 60 ML IV PRN (11:42)
[2020-03-16] MEDS: Lactated Ringer's 1,000 ML IV SCH ×7 (12:37→17:00)
[2020-03-16] MEDS: Docusate Calcium (SURFAK) 240 MG CAP PO SCH ×2 (12:40→21:46)
[2020-03-16] MEDS: Ferrous Sulfate 325 MG TAB PO SCH ×2 (12:40→17:50)
[2020-03-16] MEDS: Prenatal Vitamin 1 TAB PO SCH (12:40)
[2020-03-16] MEDS: Acetaminophen 500 MG TAB PO SCH ×2 (15:00→17:50)
[2020-03-16] MEDS ORDERED: Ibuprofen 800 MG TAB PO SCH ×2 (20:15→22:30)
[2020-03-16] MEDS: Ibuprofen 800 MG TAB PO SCH (21:46)
[2020-03-17] MEDS: Acetaminophen 500 MG TAB PO SCH ×4 (02:06→17:24)
[2020-03-17] MEDS: CEFAZOLIN 2 GM in Premix Bag 1 BAG IVPB SCH ×3 (02:15→17:26)
[2020-03-17] MEDS: Ibuprofen 800 MG TAB PO SCH ×3 (05:04→20:56)
[2020-03-17] MEDS: metroNIDAZOLE 500 MG in Premix Bag 1 BAG IVPB SCH ×3 (05:04→20:55)
[2020-03-17] MEDS: Prenatal Vitamin 1 TAB PO SCH ×2 (08:29→08:30)
[2020-03-17] MEDS: Ferrous Sulfate 325 MG TAB PO SCH ×2 (08:30→17:25)
[2020-03-17] MEDS: Docusate Calcium (SURFAK) 240 MG CAP PO SCH ×2 (08:31→20:56)
[2020-03-17] MEDS: HYDROcodone/Acetaminophen 5/325 mg Tablet PO PRN (21:38)
--- NOTE | 2020-03-17 23:02 | OP ---
DATE OF PROCEDURE: 03/15/2020 PREOPERATIVE DIAGNOSES: 1. Thirty weeks six days intrauterine . 2. Dichorionic diamniotic twins. 3. Suspected placental abruption. POSTOPERATIVE DIAGNOSES: 1. Thirty weeks six days intrauterine . 2. Dichorionic diamniotic twins. 3. Suspected placental abruption. PROCEDURE PERFORMED: Primary low cervical transverse section. CO-SURGEON: Benigno Clarke MD ANESTHESIA: General endotracheal. DESCRIPTION OF EVENTS: After informed consent was obtained from the patient, she was taken to the OR where she was prepped and draped in the usual sterile fashion. General anesthesia was administered. A Pfannenstiel incision was created with a #10 scalpel blade and carried down to the fascia. The fascia was incised transversely with the scalpel as well. Blunt digital dissection was used to extend the fascial incisions to the corners and to separate the rectus muscles and peritoneum. Bladder blade was inserted. The uterus was entered in a low-transverse fashion with a clean #10 scalpel blade. Blood-tinged amniotic fluid was encountered. Twin A was encountered in gemma breech presentation and was delivered atraumatically. Membranes were ruptured for twin B and twin B was delivered also in gemma breech presentation atraumatically. Cord segments from each cord were taken for cord gases. Cord blood was obtained. A true knot was noted in twin A's umbilical cord. The placentas were manually extracted and sent to pathology for review after cord blood was obtained. The uterus was exteriorized and freed of clots and debris. The uterus was repaired with a running locking suture of one Monocryl in a single full-thickness layer. A running second layer of horizontal mattress sutures along the incision line were placed for hemostasis, which was achieved. The abdomen was copiously irrigated. Seprafilm was applied to the repaired uterine incision and the anterior uterine fundus. The uterus was then returned to the abdomen. The peritoneum was repaired with a running suture of 3-0 Vicryl. The fascia was repaired with a running suture of zero PDS. Three interrupted sutures of 3-0 Vicryl were placed in the subdermal layer to reapproximate the skin, which was closed with skin savanah. Sponge and instrument counts were correct x4. She tolerated the procedure well and suffered no acute complications. She was taken Recovery in stable condition, the infants to the NICU in stable condition. FINDINGS: Twin A, female, Apgars five and eight at 1 and 5 minutes respectively. Twin B, female, Apgars five, seven, and eight at 1, 5 and 10 minutes respectively. COMPLICATIONS: None. EBL: 1200 mL. Job ID: [id number]
[2020-03-18] MEDS: CEFAZOLIN 2 GM in Premix Bag 1 BAG IVPB SCH ×2 (01:31→08:55)
[2020-03-18] MEDS: metroNIDAZOLE 500 MG in Premix Bag 1 BAG IVPB SCH ×2 (05:13→12:03)
[2020-03-18] MEDS: Ibuprofen 800 MG TAB PO SCH ×2 (05:13→13:39)
[2020-03-18 08:15] VITALS: BP 100/58
[2020-03-18] MEDS: Ferrous Sulfate 325 MG TAB PO SCH ×2 (08:54→16:03)
[2020-03-18] MEDS: Prenatal Vitamin 1 TAB PO SCH (08:54)
[2020-03-18] MEDS: Docusate Calcium (SURFAK) 240 MG CAP PO SCH (08:54)
[2020-03-18] MEDS: HYDROcodone/Acetaminophen 5/325 mg Tablet PO PRN ×2 (11:56→16:02)
[2020-03-18 12:03] VITALS: TEMP 98.9
== END 2020-03-18 18:00 | disposition home or self-care (01) | DRG 786 ==
LOC: L&D/OP 15:58 → L&D 16:56 → 3SW 23:44
PROVIDERS: ADMIT Family Medicine; ATTEND Family Medicine
PROC: 10D00Z1 Extraction of Products of Conception, Low, Open Approach (ICD-10-PCS; principal; 2020-03-15)
PROC: 30233N1 Transfusion of Nonautologous Red Blood Cells into Peripheral Vein, Percutaneous Approach (ICD-10-PCS; 2020-03-15)
DX: O45.93 Premature separation of placenta, unspecified, third trimester (principal); O60.14X0 Preterm labor third trimester with preterm delivery third trimester, not applicable or unspecified; O30.043 Twin pregnancy, dichorionic/diamniotic, third trimester; Z37.2 Twins, both liveborn; Z3A.30 30 weeks gestation of pregnancy; Z20.828 Contact with and (suspected) exposure to other viral communicable diseases; O32.1XX1 Maternal care for breech presentation, fetus 1
CPT/HCPCS: 36415; 36430; 51702; 76815; 82805; 85025; 85027; 85384; 85460; 85610; 85730; 86780; 86850; 86900; 86901; 87340; 88307; 99285; J0456; J0690; J0702; J1100; J1885; J2405; J2704; J3010; J3490; P9016; U0002

== ENCOUNTER 2020-12-25 18:11 | Emergency (ER) | payer OTHER ==
[2020-12-25 19:09] LABS: #Basophils 0.1 thou/uL (0.0-0.2); #Eosinphils 0.3 thou/uL (0.0-0.7); #Lymphocytes 2.8 thou/uL (1.20-3.40); #Monocytes 0.7 thou/uL (0.11-0.59); #Neutrophils 5.4 thou/uL (1.40-6.50); %Eosinophils 3.2 % (0.0-10.0); %Lymphocytes 30.3 % (21.0-51.0); %Monocytes 7.5 % (0.0-10.0); Hemoglobin 13.5 g/dL (12.0-16.0); Mean Corpuscular Hemoglobin 27.9 pg (27.0-31.0); Mean Corpuscular Volume 87.1 fL (78.0-98.0); Mean Platelet Volume 9.3 fL (7.4-10.4); Platelet Count 198 thou/uL (130-400); RBC Distribution Width 14.1 % (11.5-14.5); Red Blood Cell (RBC) Count 4.84 mill/uL (4.20-5.40); White Blood Cell (WBC) Count 9.2 thou/uL (4.8-10.8)
[2020-12-25 19:30] LABS: ALT (SGPT) 8 U/L (8-55); AST (SGOT) 12 U/L (5-34); Albumin 4.2 g/dL (3.5-5.0); Alkaline Phosphatase 73 U/L (40-110); Anion Gap 9 mmol/L (10-20); BUN (Urea Nitrogen) 9 mg/dL (7.0-18.7); Bilirubin, Total 0.3 mg/dL (0.2-1.2); Calc. Creatinine Clearance 0 mL/min (70-130); Calcium 8.9 mg/dL (7.8-10.44); Carbon Dioxide 25 mmol/L (22-29); Chloride 107 mmol/L (98-107); Globulin 3.1 g/dL (2.4-3.5); Glucose 89 mg/dL (70-105); Potassium 4.1 mmol/L (3.5-5.1); Protein, Total 7.3 g/dL (6.0-8.3); Sodium 137 mmol/L (136-145)
== END 2020-12-25 20:35 | disposition home or self-care (01) ==
LOC: ERS 18:11
DX: O02.1 Missed abortion (principal)
CPT/HCPCS: 36415; 76856; 80053; 84702; 85025